=== PATIENT | male | born 1985 | race Caucasian/White ===

== ENCOUNTER 2017-08-07 00:10 | Observation (INO) ==
--- NOTE | 2017-08-07 00:48 | Emergency Department Note ---
Disposition Clinical Impression: Post-operative infection Qualifiers: Encounter type: initial encounter Qualified Code(s): T81.4XXA - Infection following a procedure, initial encounter Cellulitis Qualifiers: Site of cellulitis of trunk: unspecified site Myositis Qualifiers: Myositis type: infective Myositis location: unspecified site Qualified Code(s) : M60.009 - Infective myositis, unspecified site; M60.00 - Infective myositis, unspecified site Disposition: Admitted As Inpatient Condition: Fair Referrals: Evy Estrada C PROGRAMMER [Partnered Physician] - NONE,PCP [Primary Care Provider] - Forms: ED Satisfaction Letter Time of Disposition: 04:53 Extremity Problem HPI - General Chief complaint: ED Extremity Problem,Nontraumatic Stated complaint: left arm issues Time Seen by Provider: 08/07/17 00:36 Source: patient Limitations: no limitations Nursing Notes Reviewed: Yes Vital Signs Reviewed: Yes - History of Present Illness HPI Narrative: Mr. Sigala presents from home for evaluation of left forearm pain with redness. He underwent surgery Weday on right radius for right radial malunion. ORIF with donor bone. At 10:00am his left upper extremity felt warm. At 13:00 this progressed to redness moving up his arm with swelling over his left forearm and wrist. His lipid complaint at this time is pain with movement of his left hand and wrist from the swelling and concern about infection. ROS: Positive: As above, chills last night Negative: Fever, nausea, vomiting, chest pains, palpitations, elbow pain, numbness, tingling Pain Scale: 6 - Related Data Previous Rx's Medication Instructions Recorded Oxycodone HCl/Acetaminophen 1 each PO Q6H PRN 7 Days #28 tablet 08/03/17 [Percocet 5-325 mg Tablet] Allergies Allergy/AdvReac Type Severity Reaction Status Date / Time No Known Allergies Allergy Verified 08/03/17 08:34 All systems ED: reviewed and negative except as stated. Review of Systems: As Per HPI Past Medical History - Past Medical History Medical history: Reports: no medical history Surgical history: Reports: no surgical history Psychiatric history: Reports: no psych history - Social History Smoking Status: Current every day smoker Smokeless Tobacco Status: No Alcohol use: Reports: none Drug use: Reports: none Physical Exam Vital Signs Reviewed General: Patient is alert, oriented, and in no acute distress. Head: atraumatic, normocephalic Eye: normal appearance, o scleral icterus, no conjunctival injection ENT: mucous membranes moist, normal external ear exam Neck: normal inspection, trachea midline, full ROM Chest: normal inspection, symmetric chest rise Respiratory: Good respiratory effort. Bilateral breath sounds are clear without wheezing, crackles, or rhonchi. Cardiovascular: Regular rate and rhythm. No clicks, rubs, gallops, or murmors. Normal heart sounds. Abdomen: Bowel sounds present normoactive x-4 quadrants. Abdomen is soft, nondistended, and nontender. No guarding or rebound. No organomegaly noted. Musculoskeletal: Spontaneously moving all extremities. Motion of left fingers and wrist intact though limited secondary to swelling. Skin: warm, dry, intact. Erythema of the left upper extremity for the midhumerus down to the left wrist, this has been circumscribed. Swelling of the left forearm extending past the wrist into the left hand. Postoperative site is intact with sutures in place; No purulence or drainage from the surgical incision, No overlying crepitis. There is blistering surrounding the surgical site Neuro: Alert and oriented x4. Sensation light touch intact left upper extremity Psych: Patient's affect is appropriate for situation. - General Limitations: no limitations General appearance: alert Course Course Narrative: Immediate concern for postoperative infection which include necrotizing fasciitis despite the lack capitis. CT left upper extremity with contrast is pending. Will. Recover with broad-spectrum antibiotics and perform full septic workup. EKG dated 08/07/17 at 01:05 interpreted as sinus rhythm with a rate of 96. Normal intervals. Normal axis. Nonspecific ST T changes. No previous EKG for comparison. 0300 There is a delay in reading the patient's CT. [facility] has called in a second radiologist to help with the backup. Patient's erythema has not spread beyond the circumscribed yarelis. 03:45 Patient has no leukocytosis or leukocytopenia. Normal lactic acid level. Erythema has not spread beyond circumscribed yarelis. She denies need for analgesia at this time. 03:[address] scan complete. Awaiting final reading by AM musculoskeletal radiologist. Pulmonary read as faxed: "Plate and screw internal fixation of distal radius fracture with intact hardware without evidence of hardware loosening or fracture. Mild angulation of the distal radius with intervening bone graft material. Ulnar styloid fracture. Soft tissue swelling and subcutaneous gas within the operative bed concerning for cellulitis/myositis without drainable abscess. Punctate hyperdensities in the operative bed may represent tiny posttraumatic bone fragments versus foreign bodies. Minimal gas dissects into the carpal tunnel." I discussed the above with Dr. Luna. He requested admission to the hospitalist for his continued evaluation and management as consulting orthopedic surgeon. I discussed the above with the patient and his at bedside. Since initiation of broad-spectrum antibiotics, patient notes that his pain and swelling have subjectively improved. He denies any for analgesia at this time. Discussed the above with the admitting hospitalist, Dr. Perez. She agrees to accept the patient for continued evaluation and management. Vital Signs Temperature 97.7 F 08/07/17 00:12 Pulse Rate 106 08/07/17 00:12 Respiratory Rate 18 08/07/17 00:12 Blood Pressure 142/95 08/07/17 00:12 O2 Sat by Pulse Oximetry 97 08/07/17 00:12 Temperature 97.7 F 08/07/17 00:12 Pulse Rate 94 08/07/17 04:18 Respiratory Rate 18 08/07/17 04:18 Blood Pressure 134/84 08/07/17 04:18 O2 Sat by Pulse Oximetry 98 08/07/17 04:18 Oxygen Delivery Oxygen Delivery Room Air Extremity Problem, Nontraumati - Lab Data Result diagrams: 08/07/17 01:00 08/07/17 01:00 Lab Results 08/07/17 08/07/17 08/07/17 Range/Units 01:00 01:00 01:00 WBC 6.5 (4.3-11.1) K/mcL RBC 4.82 (4.19-5.50) M/mcL Hgb 14.2 (12.9-16.9) g/dL Hct 43.1 (37.5-50.1) % MCV 89.4 (83.0-100.0) fL MCH 29.5 (28.0-33.3) pg MCHC 32.9 (31.6-35.5) g/dL RDW 13.0 (11.5-14.5) % Plt Count 256 (140-400) K/mcL MPV 10.3 (9.4-12.4) fL Immature Gran % 0.5 (0-4) % Seg Neutrophils % 58.2 % Lymphocytes % 27.5 % Monocytes % 8.0 % Eosinophils % 5.2 % Basophils % 0.6 % Neutrophils # 3.8 (1.6-8.9) K/mcL Lymphocytes # 1.8 (0.6-4.6) K/mcL Monocytes # 0.5 (0.0-1.3) K/mcL Eosinophils # 0.3 (0.0-0.6) K/mcL Basophils # 0.0 (0.0-0.2) K/mcL Nucleated RBCs/100 WBC 0.3 H (0) /100 WBC ESR (0-10) mm/hr PT 10.1 (9.4-12.1) Seconds INR 0.9 APTT 32.5 (26.0-36.0) Seconds Sodium 139 (136-145) mEq/L Potassium 3.9 (3.5-5.1) mEq/L Chloride 102 (98-107) mEq/L Carbon Dioxide 31 H (23-29) mEq/L BUN 9 (6-20) mg/dL Creatinine 0.88 (0.70-1.30) mg/dL Est GFR ( Amer) > 60 (> 60) Est GFR (Non-Af Amer) > 60 (> 60) BUN/Creatinine Ratio 10 (6-26) Glucose 101 (70-105) mg/dL Calculated Osmolality 287 (280-300) Lactic Acid (0.5-2.2) mmol/L Calcium 9.5 (8.6-10.3) mg/dL Phosphorus 4.0 (2.7-4.5) mg/dL Magnesium 2.0 (1.6-2.6) mg/dL C-Reactive Protein 26 H (Less than 10) mg/L 08/07/17 08/07/17 Range/Units 01:00 01:15 WBC (4.3-11.1) K/mcL RBC (4.19-5.50) M/mcL Hgb (12.9-16.9) g/dL Hct (37.5-50.1) % MCV (83.0-100.0) fL MCH (28.0-33.3) pg MCHC (31.6-35.5) g/dL RDW (11.5-14.5) % Plt Count (140-400) K/mcL MPV (9.4-12.4) fL Immature Gran % (0-4) % Seg Neutrophils % % Lymphocytes % % Monocytes % % Eosinophils % % Basophils % % Neutrophils # (1.6-8.9) K/mcL Lymphocytes # (0.6-4.6) K/mcL Monocytes # (0.0-1.3) K/mcL Eosinophils # (0.0-0.6) K/mcL Basophils # (0.0-0.2) K/mcL Nucleated RBCs/100 WBC (0) /100 WBC ESR 26 H (0-10) mm/hr PT (9.4-12.1) Seconds INR APTT (26.0-36.0) Seconds Sodium (136-145) mEq/L Potassium (3.5-5.1) mEq/L Chloride (98-107) mEq/L Carbon Dioxide (23-29) mEq/L BUN (6-20) mg/dL Creatinine (0.70-1.30) mg/dL Est GFR ( Amer) (> 60) Est GFR (Non-Af Amer) (> 60) BUN/Creatinine Ratio (6-26) Glucose (70-105) mg/dL Calculated Osmolality (280-300) Lactic Acid 1.3 (0.5-2.2) mmol/L Calcium (8.6-10.3) mg/dL Phosphorus (2.7-4.5) mg/dL Magnesium (1.6-2.6) mg/dL C-Reactive Protein (Less than 10) mg/L
[2017-08-07] MEDS ORDERED: Piperacillin/Tazobactam 3.375 GM in 0.9 % Sodium Chloride Mini Bag 100 ML IVPB ONE (01:00)
[2017-08-07] MEDS ORDERED: 0.9 % Sodium Chloride 1,000 ML IVC ONE (01:00)
[2017-08-07] MEDS ORDERED: *HR* Nalbuphine 10 MG/ML AMPUL IVP STA (01:05)
--- NOTE | 2017-08-07 01:06 | Emergency Department Note ---
Disposition Clinical Impression: Post-operative infection Qualifiers: Encounter type: initial encounter Qualified Code(s): T81.4XXA - Infection following a procedure, initial encounter Disposition: Admitted As Inpatient Condition: Fair Forms: ED Satisfaction Letter General Adult HPI - General Chief complaint: ED Extremity Problem,Nontraumatic Stated complaint: left arm issues Time Seen by Provider: 08/07/17 00:36 Source: patient Limitations: no limitations - History of Present Illness Pain Scale: 6 - Related Data Previous Rx's Medication Instructions Recorded Oxycodone HCl/Acetaminophen 1 each PO Q6H PRN 7 Days #28 tablet 08/03/17 [Percocet 5-325 mg Tablet] Allergies Allergy/AdvReac Type Severity Reaction Status Date / Time No Known Allergies Allergy Verified 08/03/17 08:34 Past Medical History - Past Medical History Medical history: Reports: no medical history Surgical history: Reports: no surgical history Psychiatric history: Reports: no psych history - Social History Smoking Status: Current every day smoker Smokeless Tobacco Status: No Alcohol use: Reports: none Drug use: Reports: none Physical Exam - General Limitations: no limitations General appearance: alert Course - Reevaluation(s) Reevaluation #1: Attestation note I examined this patient and my medical decision-making was reviewed with the emergency medicine resident. I agree with the documented findings, disposition and treatment plan as described except to the extent set forth below. Patient seen with emergency medicine resident Dr. Walt Jaffe, Please see a copy of his note for details of the H&P, ED evaluation, management and disposition. I have independently evaluated the patient and confirmed appropriate portions of the history and physical exam. Briefly: 32-year-old male [id number] had left forearm surgery today [place] forearm fracture by Dr. Plata several days ago. Patient having pain and swelling of his hand and a red streak going up his arm he has blistering at the site. Her concerned about infection possibly necrotizing fasciitis or gas forming. Patient will get a bank and Zosyn IV screening labs patient will get an left upper extremity CT with IV contrast. Admission and orthopedic consultation anticipated. Providing 30 minutes critical care service for this patient. Patient getting parenteral analgesics as well. Time: 01:04 Vital Signs Temperature 97.7 F 08/07/17 00:12 Pulse Rate 106 08/07/17 00:12 Respiratory Rate 18 08/07/17 00:12 Blood Pressure 142/95 08/07/17 00:12 O2 Sat by Pulse Oximetry 97 08/07/17 00:12 Temperature 97.7 F 08/07/17 00:12 Pulse Rate 106 08/07/17 00:12 Respiratory Rate 18 08/07/17 00:12 Blood Pressure 142/95 08/07/17 00:12 O2 Sat by Pulse Oximetry 97 08/07/17 00:12 Oxygen Delivery Oxygen Delivery Room Air
[2017-08-07 01:33] LABS: Basophils % 0.6 %; Eosinophils # 0.3 K/mcL (0.0-0.6); Eosinophils % 5.2 %; Hematocrit 43.1 % (37.5-50.1); Hemoglobin 14.2 g/dL (12.9-16.9); Immature Granulocytes % 0.5 % (0-4); Lymphocytes # 1.8 K/mcL (0.6-4.6); Lymphocytes % 27.5 %; Mean Corpuscular HGB Conc 32.9 g/dL (31.6-35.5); Mean Corpuscular Hemoglobin 29.5 pg (28.0-33.3); Mean Corpuscular Volume 89.4 fL (83.0-100.0); Mean Platelet Volume 10.3 fL (9.4-12.4); Monocytes # 0.5 K/mcL (0.0-1.3); Neutrophils # 3.8 K/mcL (1.6-8.9); Nucleated Red Blood Cells 0.3 /100 WBC (0); Platelet Count 256 K/mcL (140-400); Red Blood Count 4.82 M/mcL (4.19-5.50); Segmented Neutrophils % 58.2 %
[2017-08-07 01:38] LABS: INR 0.9; Prothrombin Time 10.1 Seconds (9.4-12.1)
[2017-08-07 01:40] LABS: Activated Partial Thrombo Time 32.5 Seconds (26.0-36.0)
[2017-08-07 01:47] LABS: BUN/Creatinine Ratio 10 (6-26); Blood Urea Nitrogen 9 mg/dL (6-20); Calcium 9.5 mg/dL (8.6-10.3); Carbon Dioxide 31 mEq/L (23-29); Chloride 102 mEq/L (98-107); Glucose 101 mg/dL (70-105); Osmolality,Calculated 287 (280-300); Potassium 3.9 mEq/L (3.5-5.1); Sodium 139 mEq/L (136-145); eGFR For African Americans > 60 (> 60); eGFR For Non-African Americans > 60 (> 60)
--- NOTE | 2017-08-07 02:00 | Internal Med History&Physical ---
Date of Encounter: 08/07/17 Time of Encounter: 01:57 Assessment and Plan (1) Cellulitis of left upper extremity Current visit: Yes Status: Acute Postoperative cellulitis left upper extremity. POD#4 Osteotomy of the right distal radius with repair of the right distal radius malunion. Afebrile, normal white count, normal lactic acid. ESR 26, CRP 26 Blood and wound cultures obtained. Patient given vancomycin and Zosyn in the emergency department. Add clindamycin for additional anaerobic coverage. Consult to orthopedic surgery by emergency department. Continue empiric antibiotic regimen with de-escalation provided by sensitivities of cultures. (2) Post-operative infection Current visit: Yes Status: Acute POD#4 Osteotomy of the right distal radius with repair of the right distal radius malunion. Orthopedic surgery consulted by emergency department. CT LUE 08/07/17: soft tissue swelling and subcutaneous gas within the operative bed concerning for cellulitis/myositis without drainable abscess. Punctate hyperdensities in the operative bed may represent tiny posttraumatic bone fragments versus foreign bodies. Minimal gas dissects into the carpal tunnel. Qualifiers: Encounter type: initial encounter Qualified Code(s): T81.4XXA - Infection following a procedure, initial encounter Internal Medicine - H&P: HPI Chief complaint: Postoperative infection Admitted From: Emergency Dept Plans for Post Hospital Care: Home History of present illness: Mr. Sigala is a 32 year old male without any past medical history POD #4 s/p osteotomy of the right distal radius with repair of the right distal radius malunion on 08/03/17 who presented to the emergency department on 08/07/17 with a chief complaint of left upper extremity swelling and redness. Patient reports that he started developing chills last night. He reports that everyone in the house that was warm but that he felt like he was freezing. He did not check his temperature at that time. He reports this morning he woke up around 10 AM he noticed an area of redness just distal to his left elbow. They thought that it might have been some postoperative swelling so he went about his day without any issue. Reports in the afternoon he started noticing worsening redness that was extending up past his elbow and towards the shoulder. At this point he decided to come in for evaluation. He reports that he had some transient numbness in his fingertips roughly half an hour that resolved. He denies any objective fevers, nausea, vomiting, weakness, paralysis. Denies any prior injury to his left arm with the exception of his malunion from an injury one year ago. He is right-hand dominant. Reports decreased range of motion secondary to swelling and pain. Patient evaluated at bedside in the emergency department. There is significant soft tissue swelling to the dorsum of the left hand extending up the forearm. He has overlying cellulitis from his hand, anterior forearm up to the elbow and tracking over the medial biceps area. He is neurovascularly intact. Unable to fully clinch his fist secondary to pain and swelling. Cap refill less than 3 seconds. Labs reviewed showing a normal white count and lactic acid. CT scan demonstrates "soft tissue swelling and subcutaneous gas within the operative bed concerning for cellulitis/myositis without drainable abscess. Punctate hyperdensities in the operative bed may represent tiny posttraumatic bone fragments versus foreign bodies. Minimal gas dissects into the carpal tunnel." These CT findings were discussed with the orthopedic surgeon by the emergency department staff. Additionally, images were sent of the patient's arm to the orthopedic provider. The patient was started on vancomycin, Zosyn and admitted to the hospitalist service. Past Med Surg Social Fam HX - Past Medical History Attestation: Yes The following information was validated with the patient. Source: patient Medical history: no medical history Psychiatric history: no psych history - Past Surgical History Surgical History: orthopedic, other (ORIF left radius) - Social History Smoking Status: Current every day smoker Smokeless Tobacco Status: No Alcohol use: none Drug use: none Internal Medicine - H&P: Meds Oxycodone HCl/Acetaminophen [Percocet 5-325 mg Tablet] 1 each PO Q6H PRN 7 Days #28 tablet 08/03/17 [Rx] 3 Allergy/AdvReac Type Severity Reaction Status Date / Time No Known Allergies Allergy Verified 08/03/17 08:34 All Systems PM: A 10-system review of systems was performed and is negative for pertinent findings except as documented above in the HPI. - Constitutional Constitutional: as per HPI, chills, no fever(s) - EENT Eyes: as per HPI Ears: as per HPI Nose, mouth and throat: as per HPI - Breasts Breasts: as per HPI - Cardiovascular Cardiovascular ROS IM: as per HPI - Respiratory Respiratory: as per HPI - Gastrointestinal Gastrointestinal: as per HPI, no diarrhea, no nausea, no vomiting - Genitourinary Genitourinary ROS male: as per HPI - Musculoskeletal Musculoskeletal ROS IM: as per HPI, limited range of motion (Left hand) - Integumentary Integumentary IM: as per HPI, erythema - Neurological Neurological ROS: as per HPI - Psychiatric Psychiatric: as per HPI - Endocrine Endocrine IM: as per HPI - Hematologic/Lymphatic Hematologic/Lymphatic: as per HPI - Allergic/Immunologic Allergic/Immunologic: as per HPI - Constitutional Vitals: Temp Pulse Resp BP Pulse Ox 97.7 F 106 18 142/95 97 08/07/17 00:12 08/07/17 00:12 08/07/17 00:12 08/07/17 00:12 08/07/17 00:12 General appearance: Present: pleasant, no acute distress, answers questions appropriately - Head Head exam: Present: atraumatic, normal inspection, normocephalic - Eye Eye exam: Present: normal appearance - ENT ENT exam: Present: normal exam - Neck Neck exam general surgery: Present: full ROM - Respiratory Respiratory exam: Present: CTAB - Cardiovascular Cardiovascular exam: Present: RRR, +S1, +S2 - GI/Abdominal GI/Abdominal exam: Present: soft. Absent: distended, tenderness - Extremities Exam Additional comments: There is significant soft tissue swelling to the left upper extremity mostly overlying the dorsum of the left hand. 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 There is overlying erythema starting at the dorsum of the left hand that extends up to the elbow anteriorly as well as medially proximal to the elbow just distal to his shoulder. No axillary lymphadenopathy. No crepitus on exam. His incision site at his lateral distal radius has sutures in place with several surrounding blisters with serous drainage. No purulence expressed from the incision site. Palpable radial pulse 2+. Capillary refill less than 3 seconds. - Neurological Exam Neurological exam: Present: alert, no focal deficits Additional comments: Neurovascularly intact in the left upper extremity. - Skin Skin exam: Present: erythema (LUE) Internal Med - H&P Results - Labs CBC & Chem 7: 08/07/17 01:00 08/07/17 01:00 Labs: Short CBC 08/07/17 Range/Units 01:00 WBC 6.5 (4.3-11.1) K/mcL Hgb 14.2 (12.9-16.9) g/dL Hct 43.1 (37.5-50.1) % Plt Count 256 (140-400) K/mcL Neutrophils # 3.8 (1.6-8.9) K/mcL BMP 08/07/17 01:00 Sodium 139 Potassium 3.9 Chloride 102 Carbon Dioxide 31 H BUN 9 Creatinine 0.88 Glucose 101 Calcium 9.5
[2017-08-07] MEDS ORDERED: *HR* Nalbuphine 10 MG/ML AMPUL IV STA (03:20)
[2017-08-07 04:45] LABS: C-Reactive Protein 26 mg/L (Less than 10)
[2017-08-07] MEDS ORDERED: Clindamycin 600 MG/50 ML 600 MG/50 ML IV.SOLN IVPB ONE (04:58)
[2017-08-07] MEDS ORDERED: Naloxone 0.4 MG/ML INJ IVP PRN ×2 (04:58→12:34)
[2017-08-07] MEDS ORDERED: OXYCODONE Oral CONC 10 MG/0.5 ML ORAL.SYG SL PRN (04:58)
[2017-08-07] MEDS ORDERED: 0.9 % Sodium Chloride 1,000 ML IVC SCH ×2 (05:00→12:34)
[2017-08-07] MEDS ORDERED: Piperacillin/Tazobactam 3.375 GM in 0.9 % Sodium Chloride Mini Bag 100 ML IVPB SCH ×3 (08:00→19:00)
[2017-08-07] MEDS ORDERED: Bupivacaine/EPI 1:200k 0.5%PF 10 ML VIAL ONE (09:58)
--- NOTE | 2017-08-07 09:59 | Anesthesia Evaluation PreOp ---
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 FINAL History: Denies Any Significant HX Other Medical History: Denies Any Significant HX Anesthesia History: No Prior Anesthetic Complications, Past Anesthesia (ORIF L- distal radius 08/03/2017) Alcohol Use: none Drug use: none Medications and Allergies Oxycodone HCl/Acetaminophen [Percocet 5-325 mg Tablet] 1 - 2 tab PO Q6H PRN [History] 3 Allergy/AdvReac Type Severity Reaction Status Date / Time No Known Allergies Allergy Verified 08/03/17 08:34 - Meds/Allergy Pre-op Review Medications Reviewed: Yes Allergies Reviewed: Yes Beta Blockers on Current Med List: No Anesthesia Results - Labs 08/07/17 01:00 08/07/17 01:00 Laboratory Tests 08/07/17 08/07/17 01:00 01:00 PT 10.1 INR 0.9 APTT 32.5 Est GFR (Non-Af Amer) > 60 Anesthesia Exam Vital Signs Temp Pulse Resp BP Pulse Ox 08/07/17 04:18 94 18 134/84 98 08/07/17 02:48 98 18 138/90 98 08/07/17 00:12 97.7 F 106 18 142/95 97 Intake and Output 08/06/17 08/07/17 08/07/17 23:59 07:59 15:59 Intake Total 250 / 250 0 / 0 Balance 250 / 250 0 / 0 Intake: IV Fluids 250 / 250 Vancocin 1,250 MG In 0.9 % 250 / 250 Sodium Chloride 250 ML @ 167 mls/hr IVPB ONCE ONE Rx#: [id number] Oral 0 / 0 Other: Weight 86.183 kg Patient Weight 08/07/17 23:59 Weight 86.183 kg Height: 5'11" Weight: 190# bmi = 26.5 NPO (# of Hours): MNoc Pain Scale Used: Numeric (1 - 10) - HEENT Pupil (Motor): Pupils equal, EOMI Mallampati: I Teeth: Normal Oral Opening: Greater than 3 - CELL STRIPPER FINAL LOC: Oriented CELL STRIPPER FINAL Motor: Normal RUE, Normal LUE, Normal RLE, Normal LLE, Normal Face CELL STRIPPER FINAL Sensory: Normal: RUE, LUE, RLE, LLE, Face - Cardiac Rhythm: Regular Murmur: None - Pulmonary Breath Sounds: bilateral Clear Respiratory Effort: Symmetrical Anesthesia Assess/Plan ASA Score: 2 (Smoker) Modified Peggy Scale for Level of Consciousness: Cooperative, oriented, and tranquil Anesthetic Plan: General Monitoring Plan: Standard Monitors Recovery Plan: PACU Anes Supervising Prov Stmt: Pt seen/evaluated, R&B Discussed, questions answered and consent obtained. Jus Sanchez MD
--- NOTE | 2017-08-07 10:00 | Orthopedic Consult Note ---
Date of Encounter: 08/07/17 Time of Encounter: 09:58 Assessment and Plan (1) Post-operative infection Current Visit: Yes Status: Acute I did discuss the diagnosis in detail with the patient as well as his significant other. He has a rather impressive cellulitis related to his surgical wound. Given concern for possible deep abscess my recommendation was for incision, drainage, irrigation, and debridement of the surgical wound. I will also exchange the screw is slightly proud dorsally. I anticipate IV antibiotics throughout his hospital stay and depending on the nature of the infection possibly upon discharge as well. We will proceed to the OR today. The risks discussed included but were not limited to stiffness, bleeding, infection, blood clots, damage to neurovascular structures, tendons, ligaments, and bone. Also discussed was the risk of continued symptoms and possible need for further procedures. I did discuss the anesthesia risks including stroke, heart attack, and . The patient did wish to proceed and consent was obtained. Qualifiers: Encounter type: initial encounter Qualified Code(s): T81.4XXA - Infection following a procedure, initial encounter History of Present Illness HPI: Mr. Sigala is a 32 year old male who is 4 days out from osteotomy of the left distal radius for malunion. He was seen the next day and office for significant pain. At that time there was no concern for infection or compartment syndrome and his pain medication was increased and he is instructed to elevate. This did significantly improve his pain however he began to notice redness going up his arm and presented to the emergency department where he was admitted to the hospitalist for a surgical site infection. He was placed on vancomycin and Zosyn in the emergency department and clindamycin was added as well. The patient did have chills at home. No other feelings of illness. Currently he does not feel ill and his pain to the left wrist and forearm is well controlled. No new injuries or complaints. He denies any numbness, tingling, or any other associated signs or symptoms. Pain is worse with movement of the digits and wrist and better with rest. No other modifying factors. Past Med Surg Social Fam HX - Past Medical History Medical history: no medical history Psychiatric history: no psych history - Past Surgical History Surgical History: orthopedic, other - Social History Smoking Status: Current every day smoker Smokeless Tobacco Status: No Alcohol use: none Drug use: none Medications and Allergies Oxycodone HCl/Acetaminophen [Percocet 5-325 mg Tablet] 1 - 2 tab PO Q6H PRN [History] 3 Allergy/AdvReac Type Severity Reaction Status Date / Time No Known Allergies Allergy Verified 08/03/17 08:34 All Systems Reviewed: The remainder of the systems were reviewed and are negative Physical Exam - Constitutional Vitals: Temp Pulse Resp BP Pulse Ox 97.7 F 94 18 134/84 98 08/07/17 00:12 08/07/17 04:18 08/07/17 04:18 08/07/17 04:18 08/07/17 04:18 CONSTITUTIONAL -Vitals reviewed -The patient is well developed, well nourished, well groomed PSYCHIATRIC -Fully alert and oriented -Pleasant mood LEFT UPPER EXTREMITY The incision is clean, dry, and intact. There are a few scattered serous blisters from swelling. There is cellulitis of significant intensity from the incision going proximally to the mid distal brachium which has been marked out by the emergency department at midnight without any progression. All compartments are soft and compressible of the arm and forearm. Significant swelling focally about the wrist and dorsal hand area. Stiffness of the digits related to pain and swelling. There he is able to grossly flex and extend the digits and I can passively flex and extend them a moderate amount without significant pain. The fingertips are all grossly sensate and well-perfused. Diagnostic Imaging: I did personally review and interpret the CT scan of the right wrist which does not show any definite abscess. Postsurgical changes are noted at the incision site though abscess cannot be ruled out. There does appear to be a single screw proud to the dorsal cortex in the second dorsal compartment. Results - Labs Result Diagrams: 08/07/17 01:00 08/07/17 01:00 Labs: Abnormal lab results Nucleated RBCs/100 WBC 0.3 /100 WBC (0) H 08/07/17 01:00 ESR 26 mm/hr (0-10) H 08/07/17 01:00 Carbon Dioxide 31 mEq/L (23-29) H 08/07/17 01:00 C-Reactive Protein 26 mg/L (Less than 10) H 08/07/17 01:00 All other labs normal. Consult Discharge Plan - Plan Referrals: NONE,PCP [Primary Care Provider] -
[2017-08-07] MEDS ORDERED: *HR* FentaNYL (PF) 100 MCG/2 ML VIAL ONE (10:14)
[2017-08-07] MEDS ORDERED: *HR* Midazolam HCl 2 MG/2 ML VIAL ONE (10:14)
[2017-08-07] MEDS ORDERED: Lidocaine -MPF 2% 2 ML VIAL ONE (10:14)
[2017-08-07] MEDS ORDERED: *HR* Propofol 200 MG/20 ML VIAL IVP ONE (10:14)
[2017-08-07] MEDS ORDERED: Famotidine 20 MG/2 ML VIAL ONE (10:18)
[2017-08-07] MEDS ORDERED: Acetaminophen IV 1,000 MG/100 ML INFUS..BTL ONE (10:19)
[2017-08-07] MEDS ORDERED: Metoclopramide 10 MG/2 ML VIAL ONE (10:19)
[2017-08-07] MEDS ORDERED: Pregabalin 75 MG CAPSULE ONE (10:21)
[2017-08-07] MEDS ORDERED: Albuterol 2.5 MG/3 ML NEBULIZER ONE (10:44)
--- NOTE | 2017-08-07 10:54 | Internal Med Progress Note ---
<Chitra Garcia - Last Filed: 08/07/17 15:20> Date of Encounter: 08/07/17 Time of Encounter: 10:30 - Assessment and plan (1) Post-operative infection Current Visit: Yes Status: Acute Assessment and plan: s/p osteotomy with repair of left distal radius malunion by Dr. Luna on 08/03 which involved hardware and donor bone matrix CT LUE w contrast: Subcutaneous fat stranding in left hand and wrist extending proximally into the arm; small foci of soft tissue gas in distal forearm, wrist , hand; no drainable fluid collection Currently no leukocytosis (WBC 6.5), slight elevation of CRP and ESR, normal lactic acid (1.3) Blood and wound culture results pending Empiric IV vancomycin, Zosyn; additionally received clindamycin Depending on nature of the infection may require prolonged course of IV antibiotics Will go to OR today, per ortho note Qualifiers: Encounter type: initial encounter Qualified Code(s): T81.4XXA - Infection following a procedure, initial encounter (2) Cellulitis of left upper extremity Current Visit: Yes Status: Acute Assessment and plan: POD #4 osteotomy of left distal radius and distal radius malunion repair with graft of donor bone Management as above - Time Spent With Patient Total time spent is greater than 50% in coordination of care (as documented) at patient's floor/unit and/or counseling patient: - Subjective Interval history: Patient seen and examined at bedside. Patient resting comfortably in his bed. Admits discomfort of his left wrist and forearm due to swelling; he denies numbness or tingling. He endorses no other complaints today. Denies fevers, chills, nausea, vomiting, chest pain, shortness of breath, coughing, wheezing, abdominal pain, diarrhea, constipation, difficulty urinating. - Constitutional Vitals: Temp Pulse Resp BP Pulse Ox 97.7 F 94 18 134/84 98 08/07/17 00:12 08/07/17 04:18 08/07/17 04:18 08/07/17 04:18 08/07/17 04:18 General appearance: Present: pleasant, no acute distress, answers questions appropriately - Other Additional findings: General: Well-nourished, No acute distress, resting comfortably in bed HEENT: head normocephalic/atraumatic, EOMI, PERRL, sclera anicteric, moist mucus membranes, Neck: Supple, no lymphadenopathy Cardio: RRR, no murmurs, +S1/S2 Pulm: CTAB, no wheezing, Normal respiratory effort. Abdomen: soft, nondistended, BS+ Extremities: LUE stabilized in splint; visible portions of left hand and forearm swollen, slight warmth and erythema, capillary refill < 3 sec, able to move fingers Neuro: AAOx3, no focal deficit, no speech deficit, mentation intact, CN II-XII grossly intact, moves extremities spontaneously MSK: unable to assess strength of LUE due to splint Skin: Visible skin is clean, dry, intact. Erythema within area circumscribed by marker Psych: Appropriate mood and affect. Answers questions appropriately. Cooperative with exam Internal Medicine: Result - Labs CBC & Chem 7: 08/07/17 01:00 08/07/17 01:00 - ABG Interpretation ABG results: PT/INR, D-dimer PT 10.1 Seconds (9.4-12.1) 08/07/17 01:00 Consult Discharge Plan - Plan Referrals: NONE,PCP [Primary Care Provider] - <Enedelia Moser - Last Filed: 08/08/17 07:41> Date of Encounter: 08/07/17 - Assessment and plan (1) Post-operative infection Current Visit: Yes Status: Acute Qualifiers: Encounter type: initial encounter Qualified Code(s): T81.4XXA - Infection following a procedure, initial encounter (2) Cellulitis of left upper extremity Current Visit: Yes Status: Acute - Time Spent With Patient Total time spent is greater than 50% in coordination of care (as documented) at patient's floor/unit and/or counseling patient: - Constitutional Vitals: Temp Pulse Resp BP Pulse Ox 98.3 F 92 16 118/64 95 08/08/17 04:08 08/08/17 04:08 08/08/17 04:08 08/08/17 04:08 08/08/17 04:08 Internal Medicine: Result - Labs CBC & Chem 7: 08/08/17 00:56 08/08/17 00:56 Labs: Short CBC 08/08/17 Range/Units 00:56 WBC 5.8 (4.3-11.1) K/mcL Hgb 11.9 L D (12.9-16.9) g/dL Hct 35.4 L (37.5-50.1) % Plt Count 249 (140-400) K/mcL Neutrophils # 4.1 (1.6-8.9) K/mcL BMP 08/08/17 00:56 Sodium 135 L Potassium 3.9 Chloride 105 Carbon Dioxide 25 BUN 12 Creatinine 0.80 Glucose 167 H Calcium 8.4 L - ABG Interpretation ABG results: PT/INR, D-dimer PT 11.0 Seconds (9.4-12.1) 08/08/17 00:56 - Attending Attestation I examined this patient and my medical decision-making was reviewed with the Resident Physician Dr. Garcia. I agree with the documented findings, disposition and treatment plan as described except to the extent set forth below. Mr. 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 Gen: A, A, O x 3 Chest: CTAB Heart: S1S2 + RRR Ext" Diffuse swelling and mild erythema in Left forearm a/p 1. Acute Left forearm cellulites 2. Possible post op infection in Left forearm 3. recent Osteotomy of Left distal radius cont empirical abx Clindamycin will f/u on blood cx, wound cx scheduled for surgical wound wash out today Ortho on board
[2017-08-07] MEDS ORDERED: Dexamethasone 4 MG/ML VIAL ONE (11:36)
[2017-08-07] MEDS ORDERED: Ondansetron 4 MG/2 ML VIAL ONE (11:36)
[2017-08-07] MEDS ORDERED: Ketorolac 30 MG/ML VIAL ONE (11:48)
--- NOTE | 2017-08-07 11:57 | Orthopedic Operative Note ---
Date of procedure: 08/07/17 Procedure: OPERATIVE REPORT DATE OF PROCEDURE: 08/07/2017 SURGEON: Hua Luna MD WAITER/WAITRESS CAFETERIA(S): There were no assistants PREOPERATIVE DIAGNOSIS: Left wrist surgical site infection POSTOPERATIVE DIAGNOSIS: Left wrist superficial surgical site infection PROCEDURE: Incision, drainage, irrigation, debridement of the left wrist ANESTHESIA: Gen. anesthesia PREOPERATIVE ANTIBIOTICS: Redosing of Zosyn and vancomycin ESTIMATED BLOOD LOSS: 1 milliliters TOURNIQUET TIME: 16 minutes at 250 mmHg SPECIMENS: Deep swabs for aerobic and anaerobic cultures PREOPERATIVE NOTE AND INDICATIONS: This patient is a 32-year-old male who is 4 days out from repair of left distal radius malunion. He was admitted yesterday for surgical site infection. Given the concern for possible deep abscess the recommendation was for the above procedure. The CT scan did reveal that one of the screws was slightly prominent dorsally and the recommendation was for screw exchange to reduce the risk of dorsal tendinopathy. The surgical plan was discussed with the patient. The risks, benefits, alternatives, and potential complications of this procedure were discussed with the patient including injury to veins, arteries, nerves, tendons, ligaments, and bone. Also discussed were the risks of infection, bleeding, pain, blood clots, the possible need for a blood transfusion, the possible need for further procedures, heart attack, stroke, and . Additional risks include persistent infection requiring further debridements. All of this was explained in simple terms, and the patient verbalized understanding and wished to proceed. Consent was given to proceed with surgery. PROCEDURE: The patient was seen in the preoperative holding area where the identify and the consent were confirmed. The left wrist was marked. Final questions were answered. The patient was brought back to the operating room and placed supine on the operating room table. A huddle was performed with the patient and all vital surgical team members confirming patient identity, the correct procedure, and the correct operative site. Gen. anesthesia was administered. The left upper extremity was prepped and draped in the usual sterile fashion. A surgical time out was performed immediately preceding the incision with all personnel in the operating room to confirm patient identity, the correct operative site and extremity, correct radiographic studies, availability of appropriate surgical equipment, and agreement on the planned procedure. The tourniquet was inflated and the old incision was opened. Dissection proceeded through the subcutaneous tissue down to the plate rather easily. There was no gross purulence. There is no devitalized tissue or evidence of deep infection. The wound was copiously irrigated with a total of 3 L of saline. The prominent screw was exchanged for a 21 mm smooth peg. X-rays confirmed good position of the new screw. A final 3 L of saline were irrigated through the wound. The tourniquet was deflated. The incision was loosely closed with interrupted nylon stitches. A sterile dressing and forearm based splint was applied. The instrument, sponge, and needle counts were correct after wound closure. POST OPERATIVE PLAN: Weight Bearing: Nonweightbearing through the left upper extremity. DVT Prophylaxis: Ambulation Activity: Avoid aggressive activities with the left upper extremity. Wound Care: Keep the dressing clean, dry, and intact. Pain Control: Per the hospitalist Perioperative antibiotic prophylaxis: Will continue the vancomycin and Zosyn Was there an sales operations assistant present: No Estimated blood loss (cc): 1
[2017-08-07] MEDS ORDERED: Ringers Solution, Lactated 1,000 ML ONE (11:59)
[2017-08-07] MEDS: OXYCODONE Oral CONC 10 MG/0.5 ML ORAL.SYG SL PRN ×2 (14:23→22:13)
--- NOTE | 2017-08-07 14:49 | Anesthesia Evaluation Post Op ---
Date of Encounter: 08/07/17 Time of Encounter: 12:20 - Vital Signs Vital Signs: Vital Signs/O2 Sat/Glucose, Most Current Temp Pulse Resp BP Pulse Ox 08/07/17 12:23 99.0 F 99 14 124/73 96 08/07/17 12:13 98.4 F 95 16 123/79 96 08/07/17 12:03 98.8 F 97 14 123/58 99 08/07/17 11:53 98.8 F 101 14 102/48 99 - Lungs Lungs: Clear Ascult./Percussion - Airway Airway: Non-obstructed - Cardiovascular Regular Rate - Mental Status Mental Status: Asleep with brisk response to light stimulation - Pain Pain Scale: 0 Pain Scale used: Numeric (1 - 10) - Nausea Vomiting Nausea Vomiting: Not Present - Hydration Hydration: Ice chips, Able to void - Discharge PostOp Status: Transfer Patient to floor Anes Supervising Prov Stmt: Pt seen/evaluated, VSS and pt has met criteria for discharge to floor. - MD Daniel
[2017-08-07] MEDS: Clindamycin 900 MG/50 ML 900 MG/50 ML IV.SOLN IVPB SCH (15:28)
[2017-08-07] MEDS ORDERED: Clindamycin 900 MG/50 ML 900 MG/50 ML IV.SOLN IVPB SCH (16:00)
[2017-08-07] MEDS ORDERED: Aminoglycoside Consult 1 EACH MC ONE (16:07)
[2017-08-08] MEDS: Clindamycin 900 MG/50 ML 900 MG/50 ML IV.SOLN IVPB SCH ×3 (01:06→14:36)
[2017-08-08 01:25] LABS: Basophils % 0.5 %; Eosinophils % 0.5 %; Hematocrit 35.4 % (37.5-50.1); Immature Granulocytes % 0.3 % (0-4); Lymphocytes % 17.6 %; Mean Corpuscular HGB Conc 33.6 g/dL (31.6-35.5); Mean Corpuscular Hemoglobin 29.7 pg (28.0-33.3); Mean Corpuscular Volume 88.3 fL (83.0-100.0); Mean Platelet Volume 10.4 fL (9.4-12.4); Monocytes # 0.5 K/mcL (0.0-1.3); Neutrophils # 4.1 K/mcL (1.6-8.9); Platelet Count 249 K/mcL (140-400); Red Blood Count 4.01 M/mcL (4.19-5.50); Red Cell Distribution Width 12.7 % (11.5-14.5); Segmented Neutrophils % 72.1 %
[2017-08-08 01:26] LABS: Hemoglobin 11.9 g/dL (12.9-16.9)
[2017-08-08 01:44] LABS: BUN/Creatinine Ratio 15 (6-26); Blood Urea Nitrogen 12 mg/dL (6-20); Calcium 8.4 mg/dL (8.6-10.3); Carbon Dioxide 25 mEq/L (23-29); Chloride 105 mEq/L (98-107); Glucose 167 mg/dL (70-105); Osmolality,Calculated 284 (280-300); Potassium 3.9 mEq/L (3.5-5.1); Sodium 135 mEq/L (136-145); eGFR For African Americans > 60 (> 60); eGFR For Non-African Americans > 60 (> 60)
[2017-08-08] MEDS: OXYCODONE Oral CONC 10 MG/0.5 ML ORAL.SYG SL PRN ×2 (03:03→07:31)
--- NOTE | 2017-08-08 09:16 | Internal Med Progress Note ---
<Chitra Garcia - Last Filed: 08/08/17 16:21> Date of Encounter: 08/08/17 Time of Encounter: 09:00 - Assessment and plan (1) Post-operative infection Status: Acute Assessment and plan: OR yesterday for incision, drainage, irrigation, and debridement of superficial surgical site infection. No gross purulence, evidence of deep infection, or devitalized tissue. No leukocytosis (WBC 5.8) CRP and ESR levels improving Preliminary blood cultures no growth x2 Preliminary wound culture no growth Continue IV clindamycin for 24H, transition to PO antibiotic tomorrow Possible d/c to home tomorrow Qualifiers: Encounter type: initial encounter Qualified Code(s): T81.4XXA - Infection following a procedure, initial encounter (2) Cellulitis of left upper extremity Status: Acute Assessment and plan: POD #1 incision, drainage, irrigation, debridement of left wrist for superficial surgical site infection Notable decrease in swelling and erythema Management as above (3) Status post osteotomy Status: Acute Assessment and plan: 08/03/[address] Luna s/p osteotomy with repair of left distal radius malunion involving hardware and donor bone matrix (4) DVT prophylaxis Status: Acute Assessment and plan: Heparin 5,000 units SQ Q12H Encourage ambulation - Time Spent With Patient Total time spent is greater than 50% in coordination of care (as documented) at patient's floor/unit and/or counseling patient: - Subjective Interval history: Patient seen and examined at bedside, patient sitting comfortably in bed. Patient's was also present in the room. He slept well last night and is tolerating PO intake. He denies fever, chills, nausea, vomiting, chest pain, shortness of breath, abdominal pain, diarrhea, constipation, no difficulty urinating. He reports decreased pain and swelling in his left upper extremity. Patient feels like he is ready to be discharged home. - Constitutional Vitals: Temp Pulse Resp BP Pulse Ox 98.1 F 77 17 106/75 95 08/08/17 07:34 08/08/17 07:34 08/08/17 07:34 08/08/17 07:34 08/08/17 07:43 General appearance: Present: pleasant, no acute distress, answers questions appropriately - Other Additional findings: General: AAOx3, No acute distress, resting comfortably in bed HEENT: head normocephalic/atraumatic, EOMI, moist mucus membranes, Neck: Supple, no lymphadenopathy Cardio: RRR, no murmurs, +S1/S2 Pulm: CTAB, no wheezing, rhonchi, rales. Normal respiratory effort. Abdomen: soft, nontender, BS+, nondistended Extremities: LUE stabilized in splint; visible portions of left hand and forearm are less swollen, decreased erythema, capillary refill < 3 sec, greater ROM in fingers Neuro: AAOx3, no focal deficit, mentation intact, CN II-XII grossly intact, moves extremities spontaneously, left hand and finger sensation intact MSK: Unable to assess strength of LUE due to cast Skin: Visible skin is clean, dry, intact. Psych: Appropriate mood and affect. Answers questions appropriately. Cooperative with exam Internal Medicine: Result - Labs CBC & Chem 7: 08/08/17 00:56 08/08/17 00:56 Labs: Short CBC 08/08/17 Range/Units 00:56 WBC 5.8 (4.3-11.1) K/mcL Hgb 11.9 L D (12.9-16.9) g/dL Hct 35.4 L (37.5-50.1) % Plt Count 249 (140-400) K/mcL Neutrophils # 4.1 (1.6-8.9) K/mcL BMP 08/08/17 00:56 Sodium 135 L Potassium 3.9 Chloride 105 Carbon Dioxide 25 BUN 12 Creatinine 0.80 Glucose 167 H Calcium 8.4 L - ABG Interpretation ABG results: PT/INR, D-dimer PT 11.0 Seconds (9.4-12.1) 08/08/17 00:56 - VTE Documentation of Mechanical Device: Intermittent pneumatic compression device Consult Discharge Plan - Plan Referrals: NONE,PCP [Family Provider] - <Enedelia Moser - Last Filed: 08/08/17 18:22> Date of Encounter: 08/08/17 - Assessment and plan (1) Post-operative infection Status: Acute Qualifiers: Encounter type: initial encounter Qualified Code(s): T81.4XXA - Infection following a procedure, initial encounter (2) Cellulitis of left upper extremity Status: Acute (3) Status post osteotomy Status: Acute (4) DVT prophylaxis Status: Acute - Time Spent With Patient Total time spent is greater than 50% in coordination of care (as documented) at patient's floor/unit and/or counseling patient: - Constitutional Vitals: Temp Pulse Resp BP Pulse Ox 98.2 F 76 17 127/56 95 08/08/17 11:17 08/08/17 11:17 08/08/17 11:17 08/08/17 11:17 08/08/17 11:17 Internal Medicine: Result - Labs CBC & Chem 7: 08/08/17 00:56 08/08/17 00:56 Labs: Short CBC 08/08/17 Range/Units 00:56 WBC 5.8 (4.3-11.1) K/mcL Hgb 11.9 L D (12.9-16.9) g/dL Hct 35.4 L (37.5-50.1) % Plt Count 249 (140-400) K/mcL Neutrophils # 4.1 (1.6-8.9) K/mcL BMP 08/08/17 00:56 Sodium 135 L Potassium 3.9 Chloride 105 Carbon Dioxide 25 BUN 12 Creatinine 0.80 Glucose 167 H Calcium 8.4 L - ABG Interpretation ABG results: PT/INR, D-dimer PT 11.0 Seconds (9.4-12.1) 08/08/17 00:56 - Attending Attestation I examined this patient and my medical decision-making was reviewed with the Resident Physician Dr. Garcia. I agree with the documented findings, disposition and treatment plan as described except to the extent set forth below.
--- NOTE | 2017-08-08 09:38 | Orthopedics Progress Note ---
Date of Encounter: 08/08/17 Time of Encounter: 09:36 - Assessment and Plan (1) Post-operative infection Current Visit: Yes Status: Acute I did discuss the diagnosis in detail with the patient as well as his significant other. He has a rather impressive cellulitis related to his surgical wound. Given concern for possible deep abscess my recommendation was for incision, drainage, irrigation, and debridement of the surgical wound. I will also exchange the screw is slightly proud dorsally. I anticipate IV antibiotics throughout his hospital stay and depending on the nature of the infection possibly upon discharge as well. We will proceed to the OR today. The risks discussed included but were not limited to stiffness, bleeding, infection, blood clots, damage to neurovascular structures, tendons, ligaments, and bone. Also discussed was the risk of continued symptoms and possible need for further procedures. I did discuss the anesthesia risks including stroke, heart attack, and . The patient did wish to proceed and consent was obtained. Qualifiers: Encounter type: initial encounter Qualified Code(s): T81.4XXA - Infection following a procedure, initial encounter Subjective Interval history: S: The patient is resting in bed comfortably Slept well last night Improvement of his pain to the left wrist Denies any numbness, tingling, or any other associated signs or symptoms O: Afebrile and his vital signs are stable Left upper extremity wound is clean, dry, and intact. Improvement in the hand and wrist swelling Significant dissipation of the erythema going up to the arm He can grossly flex and extend the digits The fingers are all sensate and well-perfused Cultures are negative at this point A: Superficial surgical site infection to the left wrist P: At this point my recommendation is to continue IV antibiotics for another 24 hours. He is currently on clindamycin. The vancomycin and Zosyn were De- escalated by the hospitalist yesterday Motion exercises to the left hand Elevation We will follow clinically with you Objective Vital signs: Vital Signs Temp Pulse Resp BP Pulse Ox 08/08/17 07:43 95 08/08/17 07:34 98.1 F 77 17 106/75 95 08/08/17 04:08 98.3 F 92 16 118/64 95 08/08/17 00:16 98.2 F 90 15 137/75 97 08/07/17 20:16 97.9 F 82 16 142/87 96 08/07/17 15:52 97.9 F 98 16 119/67 96 08/07/17 14:18 97.4 F L 95 16 137/69 94 08/07/17 13:13 98.1 F 86 14 122/71 93 08/07/17 12:40 97.1 F L 93 14 128/75 93 08/07/17 12:23 99.0 F 99 14 124/73 96 08/07/17 12:13 98.4 F 95 16 123/79 96 08/07/17 12:03 98.8 F 97 14 123/58 99 08/07/17 11:53 98.8 F 101 14 102/48 99 Intake and Output 08/07/17 08/08/17 08/08/17 23:59 07:59 15:59 Intake Total 450 / 450 200 / 200 240 / 240 Balance 450 / 450 200 / 200 240 / 240 Intake: IV Fluids 50 / 50 50 / 50 Cleocin Premix 900 MG/50 ML 900 50 / 50 50 / 50 mg In 50 ml @ 50 mls/hr IVPB Q8HR EMMY Rx#:[id number] Oral 400 / 400 150 / 150 240 / 240 Other: Meal Breakfast Percent of Meal Consumed 60% # Voids 1 - Labs CBC & BMP: 08/08/17 00:56 08/08/17 00:56 Labs: Abnormal lab results RBC 4.01 M/mcL (4.19-5.50) L 08/08/17 00:56 Hgb 11.9 g/dL (12.9-16.9) L D 08/08/17 00:56 Hct 35.4 % (37.5-50.1) L 08/08/17 00:56 Nucleated RBCs/100 WBC 0.3 /100 WBC (0) H 08/07/17 01:00 ESR 20 mm/hr (0-10) H 08/08/17 00:56 Sodium 135 mEq/L (136-145) L 08/08/17 00:56 Glucose 167 mg/dL (70-105) H 08/08/17 00:56 Calcium 8.4 mg/dL (8.6-10.3) L 08/08/17 00:56 C-Reactive Protein 14 mg/L (Less than 10) H 08/08/17 00:56 - VTE Documentation of Mechanical Device: Intermittent pneumatic compression device Consult Discharge Plan - Plan Referrals: NONE,PCP [Primary Care Provider] -
[2017-08-08 11:18] VITALS: BP 127/56
--- NOTE | 2017-08-08 16:28 | Discharge Summary ---
<Chitra Garcia - Last Filed: 08/08/17 16:26> Orders not resulted at time of discharge: Pending orders 08/07/17 11:45 Surgical Pathology [PTH] Routine 08/07/17 17:29 Culture,Anaerobic [RM] Routine 08/07/17 19:29 Culture,Tissue (Biopsy) [RM] Routine Date of Encounter: 08/08/17 Time of Encounter: 16:26 - Discharge Diagnosis (1) Post-operative infection Priority: Primary Status: Acute Qualifiers: Encounter type: initial encounter Qualified Code(s): T81.4XXA - Infection following a procedure, initial encounter (2) Cellulitis of left upper extremity Priority: Secondary Status: Acute (3) Status post osteotomy Priority: Secondary Status: Acute (4) DVT prophylaxis Priority: Secondary Status: Acute Hospital course: Mr. Sigala is a 32 year old male who presented to the emergency department s/p osteotomy with repair of left distal radius malunion by Dr. Luna on 08/03/17 with chief complaint of left upper extremity swelling and redness. CT scan left upper extremity showed subcutaneous fat stranding in the left hand and wrist with small foci of soft tissue gas in the distal forearm, wrist, hand. There is also noted malunion repair with graft of donor bone. In the emergency department, vital signs are significant for mild tachycardia of 106. Lab results only significant for an elevation in ESR 26 and CRP of 26. Remainder of labs unremarkable. Blood and wound cultures were obtained and patient was started on vancomycin and Zosyn and clindamycin was added after admission. Orthopedic surgery, Dr. Luna was also consulted. He was admitted to the hospitalist service with orthopedic consult for further evaluation of postoperative site infection. He was taken to the operating room on 08/07/17 for incision, drainage, irrigation and debridement of the left wrist. He tolerated the procedure well. Following the procedure, he did remain hemoglobin stable, afebrile, no white count and IV antibiotics were continued. Antibiotics were de-escalated to clindamycin on the second day. On 08/08/17, patient was insistent on leaving AGAINST MEDICAL ADVICE despite not receiving completion of care. Physician was called to bedside and did explain the risks of leaving AGAINST MEDICAL ADVICE including further infection, pain, mal repair, necrosis, . Patient did acknowledge these consequences, however he was still insisted on leaving AGAINST MEDICAL ADVICE. Dr. Luna was notified and will write a prescription for Bactrim. Microbiology including blood, wound cultures remain pending. - Time Spent with Patient Total time spent providing and/or coordinating discharge services: - Discharge Medications Home Medications: Oxycodone HCl/Acetaminophen [Percocet 5-325 mg Tablet] 1 - 2 tab PO Q6H PRN [History] Allergies/Adverse Reactions: 3 Allergy/AdvReac Type Severity Reaction Status Date / Time No Known Allergies Allergy Verified 08/03/17 08:34 Date of admission: 08/07/17 04:56 Primary care physician: Evy Estrada, Discharging clinician: Chitra Garcia Anticipated date of discharge: 08/08/17 - Constitutional Vitals: Temp Pulse Resp BP Pulse Ox 98.2 F 76 17 127/56 95 08/08/17 11:17 08/08/17 11:17 08/08/17 11:17 08/08/17 11:17 08/08/17 11:17 General appearance: Present: pleasant, no acute distress, answers questions appropriately - Other Additional findings: General: AAOx3, No acute distress, resting comfortably in bed HEENT: head normocephalic/atraumatic, EOMI, moist mucus membranes, Neck: Supple, no lymphadenopathy Cardio: RRR, no murmurs, +S1/S2 Pulm: CTAB, no wheezing, rhonchi, rales. Normal respiratory effort. Abdomen: soft, nontender, BS+, nondistended Extremities: LUE stabilized in splint; visible portions of left hand and forearm are less swollen, decreased erythema, capillary refill < 3 sec, greater ROM in fingers Neuro: AAOx3, no focal deficit, mentation intact, CN II-XII grossly intact, moves extremities spontaneously, left hand and finger sensation intact MSK: Unable to assess strength of LUE due to cast Skin: Visible skin is clean, dry, intact. Psych: Appropriate mood and affect. Answers questions appropriately. Cooperative with exam - Patient Status Disposition: Left Against Medical Advice Condition: Fair Functional capacity at discharge: independent ambulation - Discharge Instructions Follow Up With: NONE,PCP [Family Provider] - - VTE Documentation of Mechanical Device: Intermittent pneumatic compression device <Enedelia Moser - Last Filed: 08/08/17 18:17> Orders not resulted at time of discharge: Pending orders 08/07/17 11:45 Surgical Pathology [PTH] Routine 08/07/17 17:29 Culture,Anaerobic [RM] Routine 08/07/17 19:29 Culture,Tissue (Biopsy) [RM] Routine Date of Encounter: 08/08/17 - Discharge Diagnosis (1) Post-operative infection Status: Acute Qualifiers: Encounter type: initial encounter Qualified Code(s): T81.4XXA - Infection following a procedure, initial encounter (2) Cellulitis of left upper extremity Status: Acute (3) Status post osteotomy Status: Acute (4) DVT prophylaxis Status: Acute Hospital course: Mr. Sigala is a 32 year old male - Time Spent with Patient Total time spent providing and/or coordinating discharge services: Date of admission: 08/07/17 04:56 Primary care physician: Evy Estrada, - Constitutional Vitals: Temp Pulse Resp BP Pulse Ox 98.2 F 76 17 127/56 95 08/08/17 11:17 08/08/17 11:17 08/08/17 11:17 08/08/17 11:17 08/08/17 11:17 - Attending Attestation I examined this patient and my medical decision-making was reviewed with the Resident Physician Dr. Garcia. I agree with the documented findings, disposition and treatment plan as described except to the extent set forth below. Mr. 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 His redness and swelling improved today Gen: A, A, O x 3 Chest: CTAB Heart: S1S2 + RRR Ext" Diffuse swelling and mild erythema in Left forearm a/p 1. Acute Left forearm cellulites 2. Possible post op infection in Left forearm 3. recent Osteotomy of Left distal radius s/p wound wash y/d As per operative notes, it does look superficial inf Pt wanted to leave AMA Ortho recommend PO Bactrim and f/u with them as an out pt
[2017-08-08] MEDS ORDERED: *HR* Heparin 5,000 UNIT/ML VIAL SQ SCH (18:00)
--- NOTE | 2017-08-09 05:56 | Electrocardiograph Report ---
[address] [address] Test Date: 2017-08-07 Pat Name: Juan C Sigala Department: 103 Room: [facility] Gender: M [employer]: DANNY : 1985 Requested By: Walt Jaffe Order Number: [id number] Reading MD: Raymundo Galdamez Measurements Intervals Coleman Rate: 96 P: 55 NH: 148 QRS: -16 QRSD: 102 T: 19 QT: 324 QTc: 378 Interpretive Statements SINUS RHYTHM WITH SINUS ARRHYTHMIA Electronically Signed On 08-09-2017 5:54:18 EDT by Raymundo Galdamez
== END 2017-08-08 16:08 | disposition left against medical advice (07) ==
LOC: EMEROO 00:10 → 3NENU 00:10
PROVIDERS: ADMIT Internal Medicine; ATTEND Internal Medicine